=== PATIENT | male | born 1985 | race Caucasian/White ===

== ENCOUNTER 2018-11-17 13:25 | Emergency (ER) | payer SELFPAY ==
[~2018-11-17] VITALS: Ht 167.6 cm; Wt 70.3 kg
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
--- NOTE | 2018-11-17 13:43 | NUR ---
SEEN AND EXAMINED BY MIN MAXWELL.
--- NOTE | 2018-11-17 13:50 | NUR ---
WOUND CARE DONE BY JANITORIAL ASSISTANT.
--- NOTE | 2018-11-17 13:52 | NUR ---
RADIOLOGY AT BEDSIDE FOR XRAY.
[2018-11-17] MEDS ORDERED: ACETAMINOPHEN 325 MG TABLET ONE (13:54)
[2018-11-17] MEDS ORDERED: BENZOIN COMPOUND TINCT 60 ML BOTTLE ONE (13:59)
[2018-11-17] MEDS ORDERED: ACETAMINOPHEN 325 MG TABLET PO ONE (14:00)
[2018-11-17] MEDS ORDERED: TDAP [DIPH/PERTUSSIS/TET] 0.5 ML VIAL IM ONE ×2 (14:27→14:30)
[2018-11-17 15:49] VITALS: BP 124/76
--- NOTE | 2018-11-17 15:49 | NUR ---
Patient discharged to [employer] custody in stable condition. Written and verbal after care instructions given. Patient verbalizes understanding of instruction.
== END 2018-11-17 15:50 ==
LOC: ER 13:33
DX: S61.412A Laceration without foreign body of left hand, initial encounter (principal); Z23 Encounter for immunization; V49.09XA Driver injured in collision with other motor vehicles in nontraffic accident, initial encounter; Y93.89 Activity, other specified; Y92.410 Unspecified street and highway as the place of occurrence of the external cause; Y99.8 Other external cause status
CPT/HCPCS: 73120; 90471; 90715; 99283; A4606; Z7610